=== PATIENT | male | born 1975 | race Caucasian/White ===

== ENCOUNTER → 2021-03-09 | Outpatient (CLI) | payer OTHER ==
--- NOTE | 2021-03-09 12:08 | Diagnostic Imaging Report ---
CLINICAL INDICATION: Patient has total spine pain. Years of wear and tear. EXAM: MRI of the cervical spine performed without IV contrast. Sequences include sagittal T1, sagittal T2, sagittal T2 fat-sat, and axial T2. COMPARISON: None. FINDINGS: There is no acute cervical spine fracture. Limited visualization of the posterior fossa is unremarkable. There is an area of cord deformity with subtle amorphous increased T2 signal seen at the C4-C5 level. There is significant stenosis seen in this region. The remainder of the cervical cord is unremarkable. There are hypertrophic spurs and facet arthropathy involving the cervical spine. There is no significant paraspinal soft tissue abnormality. C1-C2: There is no significant central canal narrowing. C2-C3: There is no significant central spinal canal or neural foramen narrowing. C3-C4: There is a subtle posterior disc bulge. There is mild bilateral facet arthropathy. There is mild left neural foramen narrowing. There is no significant central canal or right neural foramen narrowing. C4-C5: There is a diffuse disc bulge with xtcbqkrg-nm-voqrcw loss of disc space height, hypertrophic posterior disc spurs, and bilateral uncinate spurs. There is kvmy-og-cxadmtxa bilateral facet arthropathy. There is severe bilateral neural foramen narrowing and central canal narrowing. C5-C6: There is grade 1 retrolisthesis of C5 on C6. There is a diffuse disc bulge with superimposed small to moderate-sized posterior disc herniation. There are uncinate spurs and moderate loss of disc space height. There is dohh-uy-gstqlpmc bilateral facet arthropathy. There is severe bilateral neural foramen narrowing. There is severe central canal stenosis. C6-C7: There is mild bilateral facet arthropathy. There is a small posterior disc bulge. There is moderate left neural foramen narrowing and mild right neural foramen narrowing. There is no significant central canal stenosis. C7-T1: There is moderate left facet arthropathy. There is mild left neural foramen narrowing. There is no significant central canal or right neural foramen narrowing. IMPRESSION: 1: There is severe multilevel cervical spine degenerative disease, which is worse at the C4-C5 and C5-C6 levels. 2: There is cord deformity at the C4-C5 and C5-C6 levels due to disc spurs and herniations, which is described above. There is a small amount of amorphous intramedullary cord signal at the C4-C5 level. This may be related to cord contusion. 3: There is grade 1 retrolisthesis of C5 on C6. Dictated by: Dictated on workstation # [id number]
--- NOTE | 2021-03-09 12:34 | Diagnostic Imaging Report ---
CLINICAL INDICATION: Patient with total spine pain. Patient with years of wear and tear. EXAM: MRI of the lumbar spine performed without IV contrast. Sagittal T2, sagittal T1, sagittal stir, axial T1, and axial T2. COMPARISON: None. FINDINGS: There are postop changes to the lower lumbar spine with L5-S1 posterior spinal fusion hardware. There are L4-L5 laminectomies. Susceptibility hardware artifact limits evaluation of anatomical structures at this level. There is no definite acute lumbar spine fracture. There is a chronic-appearing compression deformity of the L5 vertebra posteriorly. There are Modic type I degenerative signal changes involving the T12-L1 level and anteriorly at the L1-L2 and L2-L3 levels. There are minimal Modic type II degenerative signal changes anteriorly at the L5-S1 level. There is no significant paraspinal soft tissue abnormality. The visualized portions of the distal thoracic spinal cord, conus medullaris, and cauda equina nerve roots are unremarkable. The conus medullaris tip is seen at the lower L1 vertebral body level. T11-T12: There is a diffuse disk bulge with gzncbqxg-xm-fvwiky loss of disk space height. There are chronic Schmorl's nodes involving the upper endplate of the T12 vertebra. There is minimal encroachment upon the thecal sac anteriorly. T12-L1: There is diffuse disk bulge with severe loss of disk space height and endplate irregularity. There is mild bilateral facet arthropathy. There is mild right neuroforamen narrowing. There is no significant central canal or left neuroforamen narrowing. L1-L2: There is no significant central spinal canal or neural foramen narrowing. L2-L3: There is no significant central spinal canal or neural foramen narrowing. L3-L4: There is a diffuse disk bulge with moderate loss of disk space height. There is moderate bilateral facet arthropathy. There is mild central canal narrowing and mild bilateral neuroforamen narrowing. L4-L5: There is a diffuse disk bulge with superimposed small central posterior disk protrusion. There is no significant central canal narrowing. There appears to be moderate bilateral neuroforamen narrowing. Susceptibility hardware artifact slightly obscures the region. There is mild loss of disk space height. L5-S1: There is grade 1 anterolisthesis of L5 on S1 which is surgically fused. There is severe loss of disk space height with diffuse disk bulge and uncovering of the posterior aspect of the disk. There is concern for severe bilateral neuroforamen narrowing. There is no significant central canal stenosis. IMPRESSION: 1: There are postop changes with L5-S1 posterior lumbar fusion hardware with susceptibility hardware artifact limiting evaluation. 2: There is L4-L5 diffuse disk bulge with superimposed posterior disk herniation. There is concern for moderate bilateral neuroforamen narrowing. 3: There is grade 1 anterolisthesis of L5 on S1 which is surgically fused. There is diffuse disk bulge with uncovering of the posterior aspect of the disk and severe loss of disk space height. There is severe bilateral L5-S1 neuroforamen narrowing. 4: The remainder of the lumbar spine degenerative disease as described above. Dictated by: Dictated on workstation # [id number]
== END ==
LOC: RAD 10:15
PROVIDERS: ATTEND Student in an Organized Health Care Education/Training Program
DX: M47.812 Spondylosis without myelopathy or radiculopathy, cervical region (principal); M47.815 Spondylosis without myelopathy or radiculopathy, thoracolumbar region; M47.816 Spondylosis without myelopathy or radiculopathy, lumbar region; M50.323 Other cervical disc degeneration at C6-C7 level; M51.24 Other intervertebral disc displacement, thoracic region; M51.25 Other intervertebral disc displacement, thoracolumbar region; M51.26 Other intervertebral disc displacement, lumbar region; M51.27 Other intervertebral disc displacement, lumbosacral region; M48.02 Spinal stenosis, cervical region; M48.05 Spinal stenosis, thoracolumbar region; M48.061 Spinal stenosis, lumbar region without neurogenic claudication; M48.07 Spinal stenosis, lumbosacral region; M43.12 Spondylolisthesis, cervical region; M43.17 Spondylolisthesis, lumbosacral region; Z98.1 Arthrodesis status
CPT/HCPCS: 72141; 72148

== ENCOUNTER → 2021-03-11 | Outpatient (CLI) | payer OTHER ==
--- NOTE | 2021-03-11 19:26 | Diagnostic Imaging Report ---
INDICATION: Back pain. COMPARISON: None TECHNIQUE: Routine noncontrast multiplanar multisequence MR thoracic spine was performed. FINDINGS: Static alignment of the thoracic spine is preserved. There is no significant anteroretrolisthesis. There is no evidence of jumped facets. Vertebral body heights are maintained. There is no acute fracture. There are multilevel Modic type I endplate changes, greatest at T12-L1 level. Otherwise, marrow signal is unremarkable. There is also moderate multilevel intervertebral disc height loss with multilevel anterior and posterior disc bulging. Multiple endplate Schmorl's nodes are also present. There is no significant spinal canal stenosis. Thoracic cord is normal in course and caliber. There is no evidence of cord edema. No abnormal intrathecal filling defects are seen. Pre and paravertebral soft tissue structures are unremarkable. Axial images also again demonstrate mild multilevel disc bulging and bilateral facet arthropathy and ligamentum flavum laxity. As a result, there is mild multilevel narrowing of the spinal canal, but no high-grade stenosis. No significant neuroforaminal stenosis is identified. IMPRESSION: 1. Multilevel degenerative changes of the thoracic spine, but no significant spinal canal or neuroforaminal stenosis. 2. No acute fracture or dislocation. Dictated by: Dictated on workstation # [id number]
== END ==
LOC: RAD 15:46
PROVIDERS: ATTEND Student in an Organized Health Care Education/Training Program
DX: M47.814 Spondylosis without myelopathy or radiculopathy, thoracic region (principal)
CPT/HCPCS: 72146